=== PATIENT | female | born 1985 | race African-American/Black ===

== ENCOUNTER 2020-07-30 21:37 | Emergency (ER) | payer SELFPAY ==
[2020-07-30] MEDS ORDERED: levETIRAcetam 500 MG TAB ONE (22:24)
[2020-07-30 23:02] LABS: Pregnancy Test - Urine (BHCG) Negative (Negative); Specific Gravity 1.005 (1.002-1.036)
[2020-07-30 23:03] LABS: Pregu Control Background? CLEAR/WHITE (CLR/WHITE); Pregu Control Bar Appear? YES (CONTROL BAR)
== END 2020-07-30 23:11 | disposition home or self-care (01) ==
LOC: CSHERS 21:37
DX: G40.909 Epilepsy, unspecified, not intractable, without status epilepticus (principal); Z87.891 Personal history of nicotine dependence
CPT/HCPCS: 36416; 81025; 93005

== ENCOUNTER 2020-08-06 22:31 | Emergency (ER) | payer SELFPAY | END 2020-08-06 23:06 | disposition home or self-care (01) | LOC: CSHERS 22:31 | DX: R56.9 Unspecified convulsions (principal); Z87.891 Personal history of nicotine dependence; Z79.899 Other long term (current) drug therapy | CPT/HCPCS: 99281 ==